=== PATIENT | male | born 1975 | race Two or more races ===

== ENCOUNTER 2019-02-19 23:16 | Emergency (ER) | payer SELFPAY ==
[~2019-02-19] VITALS: Ht 180.3 cm; Wt 94.5 kg
[2019-02-19] MEDS ORDERED: ondansetron/PF 4mg/2ml inj IV ONE (23:50)
[2019-02-19] MEDS ORDERED: morphine 4 MG/ML inj SYRINge IV ONE (23:50)
--- NOTE | 2019-02-20 00:20 | NUR ---
PT ATTEMPTED TO PROVIDE URINE SAMPLE-WAS UNABLE. WILL CONTINUE TO ATTEMPT TO OBTAIN SAMPLE AND MONITOR PT.
[2019-02-20 00:36] LABS: BASOPHILS # (AUTO) 0.1 X10'3 (0-0.2); BASOPHILS % (AUTO) 0.6 % (0-1); EOSINOPHILS # (AUTO) 0.1 X10'3 (0-0.9); EOSINOPHILS % (AUTO) 1.1 % (0-6); HEMOGLOBIN 15.3 g/dl (14.0-17.9); LYMPHOCYTES # (AUTO) 1.8 X10'3 (1.1-4.8); LYMPHOCYTES % (AUTO) 22.1 % (21-51); MEAN CORPUSCULAR HEMOGLOBIN 30.9 PG (27.0-31.0); MEAN CORPUSCULAR HGB CONC 34.8 g/dL (33.0-36.5); MEAN CORPUSCULAR VOLUME 88.8 FL (78-98); MONOCYTES # (AUTO) 0.5 X10'3 (0-0.9); MONOCYTES % (AUTO) 6.6 % (2-12); NEUTROPHILS # (AUTO) 5.7 X10'3 (1.8-7.7); NEUTROPHILS % (AUTO) 69.6 % (42-75); PLATELET COUNT 317 X10'3 (140-440); RED BLOOD COUNT 4.95 X10'6 (4.70-6.10); RED CELL DISTRIBUTION WIDTH 12.5 % (11.5-14.5); WHITE BLOOD COUNT 8.2 X10'3 (4.5-11.0)
[2019-02-20 00:47] LABS: ALANINE AMINOTRANSFERASE 34 U/L (12-78); ALBUMIN/GLOBULIN RATIO 1.1 (1.1-1.5); ALKALINE PHOSPHATASE 133 IU/L (46-116); ANION GAP 9 (8-16); ASPARTATE AMINO TRANSFERASE 17 U/L (10-37); BILIRUBIN,TOTAL 0.2 MG/DL (0.1-1.0); BLOOD UREA NITROGEN 13 MG/DL (7-18); BUN/CREATININE RATIO 10.5 (5.4-32.0); CALCIUM 8.9 MG/DL (8.5-10.1); CHLORIDE 105 MMOL/L (99-107); CREATININE 1.24 MG/DL (0.60-1.10); GLUCOSE 103 MG/DL (70-104); PARTIAL THROMBOPLASTIN TIME 29 SECONDS (22-32); POTASSIUM 3.8 MMOL/L (3.5-5.1); SODIUM 140 MMOL/L (135-145); TOTAL CARBON DIOXIDE 26.1 MMOL/L (24-32); TOTAL PROTEIN 7.7 G/DL (6.4-8.2); eGFR 63 ML/MIN
[2019-02-20 00:49] LABS: CREATINE KINASE 119 U/L (39-308); ETHANOL < 0.010 GM/DL (0.0-0.010); LIPASE 144 U/L (73-393); TROPONIN I < 0.04 NG/ML (0.0-0.05)
[2019-02-20] MEDS ORDERED: iohexol 300mg/ml 100ml inj. ONE (01:01)
[2019-02-20 02:04] LABS: CLARITY,URINE CLEAR (Clear); COLOR,URINE YELLOW (Yellow); GLUCOSE, URINE NEGATIVE (Neg); KETONES,URINE TRACE mg/dl (Neg); LEUKOCYTE ESTERASE ,URINE NEGATIVE (Neg); NITRITES, URINE NEGATIVE (Neg); OCCULT BLOOD,URINE NEGATIVE (Neg); PROTEIN,URINE TRACE mg/dl (Neg); UA COLLECTION TYPE URINAL; UROBILINOGEN,URINE 0.2 E.U/dL (0.2-1.0)
[2019-02-20 02:07] LABS: URINE AMPHETAMINE SCREEN POSITIVE (Neg); URINE BARBITUATE SCREEN NEGATIVE (Neg); URINE BENZODIAZEPINES SCREEN NEGATIVE (Neg); URINE CANNABINOID SCREEN POSITIVE (Neg); URINE COCAINE SCREEN NEGATIVE (Neg); URINE METHADONE SCREEN NEGATIVE (Neg); URINE OPIATE SCREEN POSITIVE (Neg); URINE PHENCYCLIDINE SCREEN NEGATIVE (Neg)
[2019-02-20 02:10] LABS: BACTERIA,URINE NONE SEEN /HPF (Neg); RBC,URINE NONE SEEN /HPF (0-2); WBC,URINE 0-4 /HPF (0-4)
[2019-02-20 02:11] LABS: CAL OXALATE CRYSTALS 2+ /HPF (NEGATIVE); MUCUS STRANDS MODERATE /LPF (Neg); SQUAMOUS EPITHELIAL CELL,UR FEW /LPF (FEW)
[2019-02-20] MEDS ORDERED: IBUP-1986 PO (02:26)
[2019-02-20] MEDS ORDERED: HYDR-4353 PO (02:26)
[2019-02-20 02:44] VITALS: BP 157/104
== END 2019-02-20 03:06 | disposition home or self-care (01) ==
LOC: ER 23:18
DX: S20.212A Contusion of left front wall of thorax, initial encounter (principal); F17.200 Nicotine dependence, unspecified, uncomplicated; Z79.899 Other long term (current) drug therapy; W20.8XXA Other cause of strike by thrown, projected or falling object, initial encounter; Y93.89 Activity, other specified; Y92.89 Other specified places as the place of occurrence of the external cause; Y99.8 Other external cause status
CPT/HCPCS: 36415; 71260; 74177; 80053; 80305; 80320; 81001; 82550; 83690; 84484; 85025; 85610; 85730; 86885; 86900; 86901; 93005; 96374; 96375; 99284; J2270; J2405; Q9967

== ENCOUNTER 2020-02-20 06:15 | Emergency (ER) | payer OTHER ==
[~2020-02-20] VITALS: Ht 180.3 cm; Wt 90.9 kg
[~2020-02-20 06:15] MED LIST: IBUP-1986 PO
[2020-02-20 06:46] LABS: CLARITY,URINE SLIGHTLY CLOUDY (Clear); COLOR,URINE YELLOW (Yellow); GLUCOSE, URINE NEGATIVE (Neg); KETONES,URINE NEGATIVE (Neg); LEUKOCYTE ESTERASE ,URINE NEGATIVE (Neg); NITRITES, URINE NEGATIVE (Neg); OCCULT BLOOD,URINE NEGATIVE (Neg); PH,URINE 5.5 (4.8-8.0); PROTEIN,URINE NEGATIVE (Neg); UROBILINOGEN,URINE 0.2 E.U/dL (0.2-1.0)
[2020-02-20 06:50] LABS: UA COLLECTION TYPE CLN CATCH MIDSTREAM
[2020-02-20 06:51] LABS: URINE AMPHETAMINE SCREEN POSITIVE (Neg); URINE BARBITUATE SCREEN NEGATIVE (Neg); URINE BENZODIAZEPINES SCREEN NEGATIVE (Neg); URINE CANNABINOID SCREEN POSITIVE (Neg); URINE COCAINE SCREEN NEGATIVE (Neg); URINE METHADONE SCREEN NEGATIVE (Neg); URINE OPIATE SCREEN NEGATIVE (Neg); URINE PHENCYCLIDINE SCREEN NEGATIVE (Neg)
[2020-02-20 06:56] LABS: WBC,URINE 50-100 /HPF (0-4)
[2020-02-20 06:57] LABS: BACTERIA,URINE FEW /HPF (Neg); MUCUS STRANDS FEW /LPF (Neg); RBC,URINE 0-2 /HPF (0-2); SQUAMOUS EPITHELIAL CELL,UR FEW /LPF (FEW); WBC CLUMPS,URINE MODERATE /HPF (NEGATIVE)
[2020-02-20 07:55] VITALS: BP 146/102
[2020-02-20] MEDS ORDERED: HYDROcodone/acetaminophen 5mg/325mg tablet PO ONE (08:35)
[2020-02-20] MEDS ORDERED: naproxen 500mg tablet PO ONE (08:35)
[2020-02-20] MEDS ORDERED: cephalexin 500mg capsule PO ONE (08:35)
[2020-02-20] MEDS ORDERED: CEPH250T PO (08:36)
== END 2020-02-20 09:22 | disposition home or self-care (01) ==
LOC: ER 06:16
DX: N39.0 Urinary tract infection, site not specified (principal); F15.10 Other stimulant abuse, uncomplicated; R05 Cough; R10.9 Unspecified abdominal pain; R19.7 Diarrhea, unspecified; F12.90 Cannabis use, unspecified, uncomplicated; Z72.89 Other problems related to lifestyle; Z79.899 Other long term (current) drug therapy
CPT/HCPCS: 71045; 74176; 80305; 81001; 87088; 99285

== ENCOUNTER 2022-04-12 09:13 | Emergency (ER) | payer OTHER ==
[~2022-04-12] VITALS: Ht 180.3 cm; Wt 100.0 kg
[2022-04-12 10:08] VITALS: BP 145/102
--- NOTE | 2022-04-12 15:15 | NUR ---
no answer in lobby @[phone]
--- NOTE | 2022-04-12 15:45 | NUR ---
no answer in lobby #2 @[phone]
== END 2022-04-12 16:20 | disposition left against medical advice (07) ==
LOC: ER 09:14
DX: M79.605 Pain in left leg (principal); M79.604 Pain in right leg; Z53.21 Procedure and treatment not carried out due to patient leaving prior to being seen by health care provider

== ENCOUNTER 2023-09-15 04:43 | Emergency (ER) | payer MEDICAID, OTHER ==
[~2023-09-15] VITALS: Ht 180.3 cm; Wt 102.7 kg
[2023-09-15 04:46] VITALS: BP 161/99; PULSE 103; RESP 18; TEMP 97.7; O2SAT 97
== END 2023-09-15 08:47 | disposition left against medical advice (07) ==
LOC: ER 04:43
DX: R07.9 Chest pain, unspecified (principal); Z53.21 Procedure and treatment not carried out due to patient leaving prior to being seen by health care provider
CPT/HCPCS: 71045; 93005; 99281

== ENCOUNTER 2023-09-15 12:23 | Emergency (ER) | payer MEDICAID, OTHER ==
[~2023-09-15] VITALS: Ht 180.3 cm; Wt 102.9 kg
[2023-09-15 12:32] VITALS: BP 192/109; PULSE 95; RESP 16; TEMP 98; O2SAT 99
[2023-09-15 14:13] LABS: BASOPHILS # (AUTO) 0.1 X10'3 (0-0.2); BASOPHILS % (AUTO) 1.3 % (0-1); EOSINOPHILS # (AUTO) 0.1 X10'3 (0-0.9); EOSINOPHILS % (AUTO) 1.6 % (0-6); HEMATOCRIT 45.1 % (42.0-52.0); HEMOGLOBIN 15.7 g/dl (14.0-17.9); LYMPHOCYTES # (AUTO) 1.9 X10'3 (1.1-4.8); LYMPHOCYTES % (AUTO) 22.1 % (21-51); MEAN CORPUSCULAR HEMOGLOBIN 31.4 PG (27.0-31.0); MEAN CORPUSCULAR HGB CONC 34.7 g/dL (33.0-36.5); MEAN CORPUSCULAR VOLUME 90.5 FL (78-98); MONOCYTES # (AUTO) 0.5 X10'3 (0-0.9); MONOCYTES % (AUTO) 6.4 % (2-12); NEUTROPHILS # (AUTO) 5.8 X10'3 (1.8-7.7); NEUTROPHILS % (AUTO) 68.6 % (42-75); PLATELET COUNT 335 X10'3 (140-440); RED BLOOD COUNT 4.98 X10'6 (4.70-6.10); RED CELL DISTRIBUTION WIDTH 12.9 % (11.5-14.5); WHITE BLOOD COUNT 8.5 X10'3 (4.5-11.0)
[2023-09-15 14:30] LABS: ALANINE AMINOTRANSFERASE 43 U/L (12-78); ALBUMIN 3.7 G/DL (3.4-5.0); ALKALINE PHOSPHATASE 155 IU/L (46-116); ANION GAP 11 (8-16); ASPARTATE AMINO TRANSFERASE 28 U/L (10-37); BILIRUBIN,TOTAL 0.5 MG/DL (0.1-1.0); BLOOD UREA NITROGEN 12 MG/DL (7-18); BUN/CREATININE RATIO 9.6 (10.0-20.0); CALCIUM 8.8 MG/DL (8.5-10.1); CHLORIDE 105 MMOL/L (99-107); CREATININE 1.25 MG/DL (0.60-1.10); GLUCOSE 109 MG/DL (70-104); POTASSIUM 3.7 MMOL/L (3.5-5.1); SODIUM 141 MMOL/L (135-145); TOTAL CARBON DIOXIDE 25.2 MMOL/L (24-32); TOTAL PROTEIN 7.4 G/DL (6.4-8.2); eCRCL 76 ML/MIN; eGFR 61 ML/MIN
[2023-09-15 14:36] LABS: PRO BRAIN NATRIURETIC PEPTIDE 43 PG/ML (0-125)
== END 2023-09-15 15:14 | disposition left against medical advice (07) ==
LOC: ER 12:23
DX: R10.2 Pelvic and perineal pain (principal); Z53.21 Procedure and treatment not carried out due to patient leaving prior to being seen by health care provider
CPT/HCPCS: 36415; 71101; 80053; 83880; 84484; 85025; 93005; 99281; 99285

== ENCOUNTER 2024-01-03 08:44 | Emergency (ER) | payer MEDICAID, OTHER ==
[~2024-01-03] VITALS: Ht 180.3 cm; Wt 100.0 kg
[2024-01-03] MEDS ORDERED: famotidine 20mg tablet PO SCH (08:55)
[2024-01-03] MEDS ORDERED: DEXAMETHASONE 6 MG TABLET PO SCH (08:55)
[2024-01-03] MEDS: DEXAMETHASONE 6 MG TABLET PO ONE (09:19)
[2024-01-03] MEDS: diphenhydrAMINE 25mg capsule PO ONE (09:20)
[2024-01-03] MEDS: famotidine 20mg tablet PO ONE (09:20)
[2024-01-03 10:16] LABS: STREP A SCREEN POSITIVE (Neg)
[2024-01-03] MEDS ORDERED: AMOX-101 PO (10:18)
[2024-01-03] MEDS: amoxicillin 250mg capsule PO ONE (10:23)
[2024-01-03 10:31] VITALS: BP 160/102; PULSE 93; RESP 20; TEMP 99.1; O2SAT 98
== END 2024-01-03 10:34 | disposition home or self-care (01) ==
LOC: ER 08:44
DX: I10 Essential (primary) hypertension (principal); J02.0 Streptococcal pharyngitis; L23.7 Allergic contact dermatitis due to plants, except food; F12.90 Cannabis use, unspecified, uncomplicated; F15.90 Other stimulant use, unspecified, uncomplicated; Z79.2 Long term (current) use of antibiotics; Z79.1 Long term (current) use of non-steroidal anti-inflammatories (NSAID); Z72.89 Other problems related to lifestyle
CPT/HCPCS: 87880; 99284; Q0163; J8540